=== PATIENT | male | born 1985 | race Caucasian/White ===

== ENCOUNTER 2019-09-26 11:42 | Emergency (ER) | payer OTHER ==
[~2019-09-26] VITALS: Ht 172.7 cm; Wt 85.0 kg
--- NOTE | 2019-09-26 11:50 | NUR ---
PT WITH C/O L FACE TINGLING AND L HAND NUMBNESS. PT STATES HE FELT ANXIOUS HAD RAPID RESPIRATORY RATE PER HIS REPORT. PT DENIES CP/SOB. PT WITH HX OF ANXIETY
[2019-09-26 13:13] LABS: BASOPHILS # (AUTO) 0.02 x10^3/uL (0-0.1); BASOPHILS % (AUTO) 0 % (0-1); EOSINOPHILS # (AUTO) 0.57 x10^3/uL (0-0.4); EOSINOPHILS % (AUTO) 6 % (1-7); LYMPHOCYTES # (AUTO) 1.63 x10^3/uL (1-3.4); LYMPHOCYTES % (AUTO) 18 % (22-44); MD NO; MEAN CORPUSCULAR HGB CONC 34.1 g/dL (33.2-36.2); MEAN PLATELET VOLUME 7.2 fL (7.4-10.4); MONOCYTES # (AUTO) 0.58 x10^3/uL (0.2-0.8); MONOCYTES % (AUTO) 6 % (2-9); NEUTROPHILS # (AUTO) 6.33 x10^3/uL (1.8-6.8); NEUTROPHILS % (AUTO) 69 % (42-75); PLATELET COUNT 234 x10^3/uL (130-400); RED BLOOD COUNT 5.19 x10^6/uL (4.38-5.82); RED CELL DISTRIBUTION WIDTH 13.2 % (9.4-14.8)
[2019-09-26 13:26] LABS: ALANINE AMINOTRANSFERASE 36 U/L (12-78); ALBUMIN 4.1 g/dL (3.4-5.0); ANION GAP 3 mmol/L (5-15); CALCIUM 9.3 mg/dL (8.5-10.1); CHLORIDE 109 mmol/L (98-107); CREATININE 0.96 mg/dL (0.7-1.3)
[2019-09-26 13:30] LABS: ALKALINE PHOSPHATASE 47 U/L (45-117); BILIRUBIN,TOTAL 0.5 mg/dL (0.2-1.0); TOTAL PROTEIN 7.3 g/dL (6.4-8.2); TROPONIN I < 0.015 ng/mL (0.000-0.045)
--- NOTE | 2019-09-26 13:30 | NUR ---
PT TO IMAGING AT THIS TIME
[2019-09-26 14:21] VITALS: BP 108/74
--- NOTE | 2019-09-26 14:44 | NUR ---
task RN note: report received from primary RN Marilia. MD Yun was at bedside to update pt with results and POC. MD instructed pt to follow up with his primary care provider regarding head CT findings. pt is a&ox4, resps even and unlabored, speaking in full sentences without difficulty. neuro intact, pt has equal grasp and 5/5 strength to all extremities. no drift. pupils equal, round and reactive. pt denies pain. pt reports numbness has resolved completely. discharge instructions received from MD, pt given dc instructions. pt amb to dc desk with steady gait, accompanied by friend. peg at dc.
== END 2019-09-26 14:44 | disposition home or self-care (01) ==
LOC: ED 14:20
DX: G45.9 Transient cerebral ischemic attack, unspecified (principal); G93.0 Cerebral cysts
CPT/HCPCS: 36415; 70450; 71045; 80053; 83880; 84484; 85025; 93005; 99284